=== PATIENT | female | born 1975 | race Caucasian/White ===

== ENCOUNTER → 2017-10-09 20:42 | Outpatient (CLI) | payer OTHER, SELFPAY ==
[2017-10-15 09:00] LABS: HPV APTIMA, High Risk Negative (Negative)
== END ==
PROVIDERS: Visit Provider Nurse Practitioner Women's Health
DX: Z12.4 Encounter for screening for malignant neoplasm of cervix (principal)
CPT/HCPCS: 88175; G0145

== ENCOUNTER → 2017-10-30 16:46 | Outpatient (CLI) | payer OTHER, SELFPAY ==
--- NOTE | 2017-10-30 16:48 | BI_ITS ---
MAMMOGRAPHY - BILATERAL SCREENING 3-D MIL SYNTHESIS REASON FOR EXAM: Female, 42 years old. Bilateral Screening 3-D tomosynthesis PERTINENT HISTORY: No significant family history. TECHNIQUE: 2-D mammograms and 3-D Mil synthesis of the breast (s) were performed. CAD was performed. COMPARISON: None. FINDINGS: The breast composition is composed of scattered fibroglandular density. Scattered benign calcifications are seen. No dense spiculated masses or suspicious microcalcifications are identified. No architectural distortion is identified. There is no skin thickening or retraction. There has been no significant change since the prior study. BI/SCREENING MAMM (CAD), BILAT IMPRESSION: No mammographic signs of malignancy. Routine yearly mammograms recommended. ASSESSMENT CATEGORY: BIRADS Category 1: Negative. A letter regarding these results will be sent to the patient by the facility within 30 days. FOLLOW UP RECOMMENDATION: Yearly follow up mammogram recommended. (A) Approximately 10% of breast cancers are not detected by mammography. A normal mammogram should not delay biopsy of a clinically suspicious abnormality. Electronically Signed: Vishal Maldonado MD at 7:46 EDT , Service support ,
== END ==
PROVIDERS: Family Provider Family Medicine; PCP Family Medicine; Visit Provider Nurse Practitioner Women's Health
DX: Z12.31 Encounter for screening mammogram for malignant neoplasm of breast (principal)
CPT/HCPCS: 77063; 77067

== ENCOUNTER → 2019-09-11 12:32 | Outpatient (CLI) | payer OTHER, SELFPAY ==
--- NOTE | 2019-09-11 12:36 | RAD_ITS ---
STUDY: X-RAY - RIGHT TIBIA AND FIBULA REASON FOR EXAM: Female, 43 years old. ROLLED RIGHT ANKLE 5 WEEKS AGO PLAYING BASKETBALL. PAIN SINCE THEN RIGHT LATERAL ANKLE INTO AND UP RIGHT LOWER LEG LATERALLY INTO HER RIGHT KNEE. TECHNIQUE: 2 view(s) of the tibia and fibula were obtained. COMPARISON: None. FINDINGS: Normal visualized tibia. Normal visualized fibula. The soft tissue structures are unremarkable. RAD/Tibia & Fibula 2 Views IMPRESSION: Normal x-ray examination of the tibia and fibula. Electronically Signed: Rome Mckeon, at 13:07 EDT , Service support ,
--- NOTE | 2019-09-11 12:38 | RAD_ITS ---
STUDY: X-RAY - RIGHT ANKLE REASON FOR EXAM: Female, 43 years old. ROLLED RIGHT ANKLE 5 WEEKS AGO PLAYING BASKETBALL. PAIN SINCE THEN RIGHT LATERAL ANKLE INTO AND UP RIGHT LOWER LEG LATERALLY INTO HER RIGHT KNEE. TECHNIQUE: 3 view(s) of the ankle. COMPARISON: None. FINDINGS: Normal visualized distal tibia and fibula. Normal medial and lateral malleoli. Normal tibiotalar articulation and ankle mortise. Normal visualized talus and calcaneus. The visualized subtalar, talonavicular, calcaneocuboid and tarsal articulations are normal. The soft tissue structures are unremarkable. RAD/Ankle min 3 Views IMPRESSION: Normal x-ray examination of the ankle. Electronically Signed: Rome Mckeon, at 13:07 EDT , Service support ,
== END ==
PROVIDERS: PCP Family Medicine; Referring Provider Family Medicine; Visit Provider Family Medicine
DX: M25.571 Pain in right ankle and joints of right foot (principal)
CPT/HCPCS: 73590; 73610

== ENCOUNTER 2021-05-17 16:04 | Outpatient (CLI) | payer SELFPAY ==
[2021-05-17 17:36] LABS: Absolute Lymphocyte Count 2.07 X10^3/uL (0.83-4.51); Absolute Neutrophil Count 6.7 X10^3/uL (2.0-7.7); Basophil# 0.03 X10^3/uL; Basophil% 0.3 % (0-1); Eosinophil# 0.13 X10^3/uL; Eosinophils% 1.3 % (0-5); Hematocrit 42.5 % (37-47); Hemoglobin 13.9 g/dL (12.0-15.0); Lymphocyte # 2.07 X10^3/ul (0.83-4.51); Lymphocyte % 21.3 % (19-41); Mean Corp Hgb Conc 32.7 g/dL (32-36); Mean Corpuscular Hgb 29.6 pg (27.0-32.0); Mean Corpuscular Volume 90.6 fL (81-99); Mean Platelet Vol. 11.3 fl (6.2-12.0); Monocyte# 0.71 X10^3/uL; Monocyte% 7.3 % (0-10); NRBC Flagged by Analyzer 0 % (0-5); Neutrophil # 6.73 X10^3/uL (2.7-7.7); Neutrophil % 69.4 % (47-70); Platelet Count 339 K/mm3 (150-450); RBC Distribution Width CV 13.3 % (11.6-14.6); RBC Distribution Width SD 44.4 fl (35.1-43.9); Red Blood Count 4.69 M/mm3 (4.2-5.4); White Blood Count 9.7 K/mm3 (4.4-11.0)
[2021-05-17 18:12] LABS: Anion Gap 6 (5-15); BUN 18 mg/dL (7-18); BUN/Creat Ratio 20.6 RATIO (10-20); Calcium,Total 8.8 mg/dL (8.5-10.1); Chloride 106 mmol/L (98-107); Creatinine, Serum 0.87 mg/dL (0.55-1.02); EST Glomerular Filtration Rate 75 mL/min (>60); Est Glom Filt Rate - Afr Amer 90 mL/min (>60); Glucose 90 mg/dL (74-106); Potassium 4.2 mmol/L (3.5-5.1); Sodium Level 136 mmol/L (136-145); Thyroid Stim Hormone (TSH) 2.91 uIU/mL (0.358-3.74)
[2021-05-18 10:20] LABS: Vitamin D,25 Hydroxy 22.2 ng/mL
== END 2021-05-17 23:59 | disposition home or self-care (01) ==
PROVIDERS: PCP Family Medicine; Referring Provider Family Medicine; Visit Provider Family Medicine
DX: R53.83 Other fatigue (principal)
CPT/HCPCS: 36415; 80048; 82306; 84443; 85025

== ENCOUNTER → 2021-11-17 | Outpatient (CLI) | payer OTHER, SELFPAY ==
--- NOTE | 2021-11-17 14:21 | MRI_ITS ---
STUDY: MRI RIGHT ANKLE WITHOUT CONTRAST REASON FOR EXAM: Right ankle pain, swelling, clicking, instability, high ankle sprain 1 year ago. TECHNIQUE: Standardized fat and water weighted pulse sequences were obtained in all 3 orthogonal planes. COMPARISON: Radiographs 09/11/2019. FINDINGS: Normal subcutis adipose space. There is a very small volume of fluid in the distal posterior tibialis tendon sheath (T2 axial images 17, 18). The posterior tibialis tendon is morphologically normal. Normal flexor digitorum longus tendon. Normal flexor hallucis longus tendon. Normal peroneus longus and brevis tendons. Normal tibialis anterior tendon. Normal extensor hallucis longus tendon. Normal extensor digitorum longus tendons. Normal Achilles tendon and teno-osseous insertion. Normal plantar fascia. Normal plantar calcaneal tubercles. There is mild atrophy with mild partial fat replacement of the abductor digiti minimi muscle (T1 sagittal image 6). Normal distal tibiofibular syndesmotic ligamentous complex. There is a chronic partial tear anterior talofibular ligament (T2 axial images 16, 17). Normal calcaneofibular and posterior talofibular ligaments. Normal subtalar ligaments and sinus tarsi. Normal deltoid ligamentous complexes. Normal plantar calcaneonavicular (spring) ligament. There is a small tibiotalar joint effusion (inversion recovery sagittal image 11). Normal talar dome. Normal subtalar articulations. Normal talonavicular articulation. Normal calcaneocuboid articulation. Normal navicular-cuneiform articulations. 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 Very mild posterior tibialis tenosynovitis. Small tibiotalar joint effusion. Mild atrophy of the abductor digiti minimi muscle. Electronically Signed: Eladio Vences MD at 17:10 EDT Reading Location ID and State: [facility] / MD Tel , Service support ,
== END | disposition home or self-care (01) ==
PROVIDERS: PCP Family Medicine; Visit Provider Podiatrist
DX: M25.371 Other instability, right ankle (principal)
CPT/HCPCS: 73721

== ENCOUNTER → 2021-11-18 | Outpatient (CLI) | payer OTHER, SELFPAY ==
[2021-11-18 17:47] LABS: Bacteria 0 SEEN /hpf (None Seen); Mucous, Urine 0 SEEN /hpf (<or=2+); Red Blood Cells-Urine 0 SEEN /hpf (0-5); Squamous Epithelial Cells - UA 0 SEEN /hpf (5-10)
[2021-11-18 18:04] LABS: Color, Urine Yellow (Yellow); Glucose, Dipstick Normal (Normal); Ketone-Dipstick Negative (Negative); Leukocyte Esterase-Dipstick 25 /ul (Negative); Nitrite-Dipstick Positive (Negative); Occult Blood-Urine Negative /ul (Negative); Protein-Dipstick Negative (Negative); Specific Gravity, Urine 1.005 (1.002-1.030); Urine Clarity Clear (Clear); Urine Urobilinogen 1 mg/dl (Normal)
[2021-11-18 18:09] LABS: Urine Bilirubin Dipstick 1 mg/dL (Negative)
[2021-11-18 18:10] LABS: White Blood Cells 0-5 SEEN /hpf (0-5)
== END | disposition home or self-care (01) ==
PROVIDERS: PCP Family Medicine; Referring Provider Family Medicine; Visit Provider Family Medicine
DX: N39.0 Urinary tract infection, site not specified (principal)
CPT/HCPCS: 81001; 87086

== ENCOUNTER → 2024-05-19 | Outpatient (CLI) | payer OTHER, SELFPAY | END | disposition home or self-care (01) | LOC: LABSPEC 15:02 | PROVIDERS: PCP Family Medicine; Visit Provider Physician Assistant Surgical | DX: R82.90 Unspecified abnormal findings in urine (principal) | CPT/HCPCS: 87086 ==

== ENCOUNTER → 2025-03-26 | Outpatient (CLI) | payer OTHER, SELFPAY ==
[2025-03-26 16:08] LABS: AST(SGOT) 18 U/L (<=31); Alanine Aminotransfer ALT/SGPT 18 U/L (<=34); Albumin, Serum 4.4 g/dL (3.5-5.0); Alkaline Phosphatase 73 U/L (35-104); Anion Gap 12 (5-15); BUN 14 mg/dL (4-19); BUN/Creat Ratio 15.6 RATIO (10-20); Calcium,Total 9.1 mg/dL (7.6-11.0); Carbon Dioxide 23.0 mmol/L (21.0-32.0); Chloride 102 mmol/L (98-108); Globulin 3.0 g/dL (2.2-4.2); Glucose 71 mg/dL (70-99); Potassium 4.0 mmol/L (3.3-5.1)
--- OUTSIDE RECORDS SUMMARY | 2025-03-26 17:41 | XMS RPT_ITS | CCD ---
Author Organization [facility] Care Team Providers Care Recorder Of Deeds Name Role Phone Memo Rivera Referring Unavailable Enrrique Kenny Attending Unavailable Memo Rivera Primary Care Unavailable Enrrique Kenny Attending Unavailable Memo Rivera Primary Care Unavailable Medications Current Medications Medication Drug Class(es) Dates Sig (Normalized) Sig (Original) FLUoxetine (2 sources) Serotonin Reuptake Inhibitor Start: 01-25-2013 Prozac Active January 25, 2013 12:00am Nitrofurantoin (2 sources) Nitrofuran Antibacterial Start: 01-25-2013 Macrobid Active January 25, 2013 12:00am tranexamic acid 650 mg oral tablet (2 sources) Antifibrinolytic Agent Start: 10-09-2017 Tranexamic Acid (Lysteda) 650 mg tablet Active 1300 MG PO THREE TIMES A DAY 60 October 09, 2017 12:00am Completed/Discontinued Medications Medication Drug Class(es) Dates Sig (Normalized) Sig (Original) buPROPion (2 sources) Aminoketone Start: 01-25-2013 End: 10-09-2017 Wellbutrin Discontinued January 25, 2013 12:00am October 09, 2017 1:49pm Problems Problem Classification Problem Date Documented Da te Episodic/Chronic Genitourinary symptoms and ill-defined conditions (2 sources) Unspecified abnormal findings in urine; Translations: [Dysuria] Onset: 05-17-2024 Episodic Menstrual disorders (4 sources) Menorrhagia; Translations: [Excessive and frequent menstruation with regular cycle] Chronic Mood disorders (2 sources) Depressive disorder; Translations: [Depression] Chronic Urinary tract infections (3 sources) Recurrent urinary tract infection; Translations: [Urinary tract infection, site not specified] Onset: 05-17-2024 Episodic Results Test Name Value Interpretation Reference Range Facility Urine Cultureon 05-20-2024 URC Culture exhibits no growth. Normal [facility] Comment on above: Performed By: #### M [id number] #### [facility] Laboratory [address] [place], [address] Urgent Care Visit Reporton 0 05-16-2024 Urgent Care Visit Report [facility] [address], [address] [place] [address] OFFICE VISIT Date of Service: 05/16/24 MR#: [id number] Acct: [id number] Name: ORIANA DA SILVA Rep #: [id number] : 1975 Provider: NICOLE Godfrey Age/Sex: 48/F Location: [facility] Status: Signed Intake Vital Signs 10/09/17 13:43 05/16/24 18:01 Height 5 ft 7 in BP 136/66 H Blood Pressure Location Lt brachial Position Sitting Respiration 16 Pulse 88 Pulse Source NIBP Temp 98.2 F Temp Source Oral Pulse Oximetry (%) 96 Oxygen Delivery Method room air Intake Visit Reasons: Urinary tract infection Chief Complaint: dysuria, frequency Slate 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 recent UTI, does not feel ATB completely cured UTI. denies fever, abd pain, flank pain. [facility] Surgical History History of tonsillectomy Social History current occupational status: employed current occupation: [employer] Smoking Status: Never smoker alcohol intake: current alcohol intake frequency: a few times a month substance use type: does not use seatbelt use: always do you feel safe at home: Yes additional social history: HPI HPI Chief Complaint: dysuria, frequency Details: ORIANA DA SILVA, is a 48 F who presents to the office today for complaint of dysuria and increasing urgency/frequency. Patient denies pelvic or abdominal pain. No nausea, vomiting or diarrhea. No fever, chills, sweats. No loss of bowel or bladder control. No other associated symptoms or alleviating/aggravating factors. ROS Const Constitutional: No other (6 system ROS completed with pertinent findings in the HPI otherwise normal.) Exam Const General: cooperative and healthy appearing Resp Effort Inspection: normal respiratory effort Auscultation: Bilateral: Clear to Auscultation Cardio Rate: regular rate Rhythm: regular rhythm GI Auscultation: normal bowel sounds General: No CVA tenderness Psych Appearance: grossly normal Mental Status: mental status grossly normal Coding Level of Care Code Off vis,new,level 3 Diagnoses Cystitis N30.90 Assessment and Plan Assessment and Plan (1) Cystitis: Status: Acute Plan: Bactrim as prescribed today. Encouraged to get plenty of rest, drink lots of clear liquids, and use Tylenol or Ibuprofen (unless contraindicated) for fever and comfort. Patient also educated on other symptomatic management techniques. To be seen in 7-10 days if no improvement; sooner if worsening of symptoms. Patient advised of potential red flags and when appropriate to report to the ED. Patient verbalized understanding and agreement with all the above. Orders: Orders POC Urinalysis Dip (Clinic) Today R30.0 - Dysuria Culture, Urine Today R82.90 - Unspecified abnormal findings in urine Medications: New sulfamethoxazole-trimet hoprim 800-160 mg (Bactrim DS) 1 TAB PO Q12H 20 tabs 0RF 10 days Clinical Quality Measures Falls Risk Screening/Assistive Devices Have you fallen in the past year?: No 05/16/24 180 Date Enrrique Rausch Signature: Date (if applicable) CC: Normal [facility] Basophil percentageon 2021 Basophil percentage 0-5 SEEN /hpf 0-5 [facility] Work Phone: Bilirubin Test strip Ql (U)o n 11-18-2021 Bilirubin Ql (U) 1 mg/dL Negative [facility] Work Phone: Comment on above: NCOLOR OF URINE MAY AFFECT DIPSTICK RESULTS. Ketones Test strip Ql (U)on 11-18-2021 Ketones Ql (U) Negative Negative [facility] Work Phone: Mucus LM Ql (Urine sed)on Mucus Ql (Urine sed) 0 SEEN /hpf [facility] Work Phone: Nitrite Test strip Ql (U)on 11-18-2021 Nitrite Ql (U) Positive Negative [facility] Work Phone: Protein Test strip Ql (U)on 11-18-2021 Protein Ql (U) Negative Negative [facility] Work Phone: Squamous epithelial cells de tection in urine sediment by light microscopyon 11-18-2021 Epithelial cells.squamous LM Ql (Urine sed) 0 SEEN /hpf 5-10 [facility] Work Phone: Urine blood detectionon 11-07 RBC Ql (U) Negative Negative [facility] Work Phone: RBC Ql (U) 0 SEEN /hpf 0-5 [facility] Work Phone: Urine clarityon 11-18-2021 Clarity (U) Clear Clear [facility] Work Phone: Urine color determinationon 11-18-2021 Color (U) Yellow Yellow [facility] Work Phone: Urine glucose detectionon Glucose Ql (U) Normal mg/dl Normal [facility] Work Phone: Urine leukocyte esterase det ection by dipstickon 11-18-2021 Leukocyte esterase Test strip Ql (U) 25 /ul Negative [facility] Work Phone: Urine pHon 11-18-2021 pH (U) 7.0 [pH] 5.0 - 8.0 [facility] Work Phone: Urine sediment bacteria coun t by microscopy (number/high power field)on 11-18-2021 Bacteria LM.HPF (Urine sed) [#/Area] 0 /[HPF] None Seen [facility] Work Phone: Urine specific gravity measu rementon 11-18-2021 Specific gravity (U) [Rel density] 1.005 1.002-1.030 [facility] Work Phone: Urobilinogen Auto test strip Ql (U)on 11-18-2021 Urobilinogen Ql (U) 1 mg/dl Normal [facility] Work Phone: Phone Msgon 06-23-2020 Phone Msg - From: Ursula Worthington To: Mera Munson; Sent: 05/11/2020 16:36:07 EST Subject: Reschedule Oriana indicated she needs to be rescheduled for her appt with Dr. Flynn 2/3. Please call her to reschedule and pull her off of the schedule. From: Mera Munson To: Ursula Worthington; [facility]; Sent: 05/12/2020 08:10:23 EST Subject: RE: Reschedule LV for patient to attempt to get her rescheduled. Patient's appointment for today will be canceled. If she is to call back, she can be rescheduled for August unless due to Covid. From: Karissa Flower ([facility]) To: Mera Munson; Sent: 06/23/2020 07:13:20 EDT Subject: RE: Reschedule Patient has not called back. Will file message Normal [facility] Physician Progress No ifrah 02-26-2020 [facility] Physician Progress Note Chief Complaint f/u from SIS/ EMB talk about other options. Stop taking Gianvi right after her last appt. History of Present Illness heavy bleeding Sept now just spotty but is noncompliant with pill after us appeared normal with normal SIS likely if pill is taken approp spotting will stop she is here for followup SIS was normal biopsy was normal thinking mirena need for contraception reviewed EMB was normal Physical Exam Vitals & Measurements Systolic Blood Pressure: 120 mmHg (02/26/20 10:37:00) Diastolic Blood Pressure: 80 mmHg (02/26/20 10:37:00) Height/Length Measured: 170 cm (02/26/20 10:37:00) Weight Measured: 89.2 kg (02/26/20 10:37:00) Body Mass Index Measured: 30.87 kg/m2 (02/26/20 10:37:00) Depression Screening Scores Initial Depression Screen Score: 0 (02/26/20 10:37:00) Fall Risk Assessment Is the patient ambulatory (mobile): Yes (02/26/20 10:37:00) Have you had a fall within the past: No (02/26/20 10:37:00) Have you had 2 or more falls in the past: No (02/26/20 10:37:00) Constitutional: Appears appropriate for age, non-toxic, and comfortable. No signs of apparent distress present. Speech is clear and appropriate. Awake and oriented x3. Stand comfortably erect. Patient is cooperative. VSS and reviewed Eyes: Full range of extra-ocular motion. Conjunctivae clear. Neck: Supple and no Thyromegaly Respiratory: Chest expansion is adequate bilaterally. No work of breath Cardiovascular: Rate is regular. Abdomen: Soft and Non-tender, Non distended Musculoskeletal: Walks with a normal gait. Motor strength is intact Skin: Warm and dry with no evidence of unusual rashes or suspicious lesions. Neurological: Alert and oriented x 3. Mood is normal. Lab Results Last Months Labs No qualifying data available. Assessment/Plan 1. Abnormal uterine bleeding (AUB) N93.9 Ordered: AMB IUD Precert, 02/26/2020 11:20:00 EST, mirena 2. Menorrhagia N92.0 Problem List/Past Medical History Ongoing Abnormal uterine bleeding (AUB) Anxiety Anxiety and depression Menorrhagia Historical Procedure/Surgical History Tonsillectomy. Last pap-neg 2 or 3 yrs ago Medications FLUoxetine 20 mg oral capsule Gianvi 3 mg-0.02 mg oral tablet, Not taking LORazepam 0.5 mg oral tablet PROzac, ORAL, DAILY Allergies No Known Medication Allergies Social History Alcohol - Denies Alcohol Use, 02/05/2020 Sexual Other contraceptive use: Gianvi., 02/05/2020 Tobacco Never (less than 100 in lifetime) Tobacco Use:., 02/05/2020 Family History Family history is negative . Health Maintenance Pending (in the next year) OverDue Influenza Vaccine due 11/08/19 and every 1 days Due Cervical Cancer Screening due 02/26/20 Unknown Frequency Lipid Screening due 02/26/20 Unknown Frequency MMR Vaccine Dose 1 due 02/26/20 One-time only Tetanus Vaccine due 02/26/20 and every 10 years Varicella Vaccine Dose 1 due 02/26/20 One-time only Satisfied (in the past 1 year) There are no satisfied recommendations within the defined date range Normal [facility] HYSTERSONOGRAPHY OFFICE Salty Lockhart 02-13-2020 HYSTERSONOGRAPHY OFFICE READ _GYN U/S TV Date: 02/05/20 Indication: AUB Uterus: 9.9 cm x 5.0 cm x 5.7 cm Endometrium: uniform- 6.0mm thin Position: anteverted Right Ovary: 23 mm x 17 mm x 15 mm well visualized, subcentimeter follicles present Flow normal Left Ovary: 28 mm x 16 mm x 13 mm well visualized, subcentimeter follicles present Flow normal No Free fluid in cul de sac IMPRESSION: Normal pelvic us No adnexal masses No acute process SIS= Saline infused Sonohysterogram Catheter seen inside cavity fluid distends with adequate view of uterine cavity. Endometrial lining visualized without difficulty. No pathology seen small clot present but think lining. Findings reviewed with patient. Normal [facility] Comment on above: Order Comment: Order ed on Fin# [id number] Result Comment: Tech nologist: DM Dictated By: SEVERINO FLYNN DO, FACOG Signed By: SEVERINO FLYNN DO, FACOG Transcribed: 02.13.2020 11:10 Signed Out: 02/13/20 11:10:10 SURGICAL PATH REPORTon 02-08 SURGICAL PATH REPORT [facility] Department of Pathology [address] [place] [id number] Name: ORIANA DA SILVA : 1975 [facility] [id number] Number: Gender: Female Location: [facility]. Admit 44 years Attending SEVERINO FLYNN DO, FACOG Age: Provider: Ordering SEVERINO FLYNN DO, FACOG Provider: Consulting: Surgical Pathology Report ACCESSION: COLLECTED DATE/TIME: RECEIVED DATE/TIME: PATHOLOGIST: [id number] 02/05/2020 11:00 EDT 02/06/2020 11:05 EDT CHULA HARDY, [facility] Final Diagnosis ENDOMETRIUM; BIOPSY: - SCANT ENDOMETRIUM WITH STROMAL BREAKDOWN. NOTE: There is no hyperplasia, dysplasia or malignancy seen, however, the endometrium is scanty. CELIO QUIROS PATHOLOGIST (Electronic Signature) Date Verified 02/09/2020 TS Clinical Data PRE-OP DIAGNOSIS: AUB POST-OP DIAGNOSIS: Not specified PROCEDURES: EMB SPECIMEN: Endometrial tissue Gross Description Labeled endometrial bx. Received in formalin are multiple irregular oneil feathery segments of soft tissue. The specimen is filtered and has a filtrate aggregate dimension of 2.5 x 2.0 x 0.5 cm. The specimen is entirely submitted in one cassette. MP:roman 02/06/2020 Codes CPT CODE: 31041 ____ Print Date/ 02/10/2020 09:21 EST Number: Time: [facility] Comment on above: Performed By: #### [id number] #### [facility] Services [address] [place], [place] [id number] Dental Instrument Maker: Mau Emery MD MISCELLANEOUS TEST-SOARIANon 01-10-2020 MISCELLANEOUS Canceled [facility] Comment on above: Order Comment: TEST MISCELLANEOUS TEST-SOARIAN WAS CANCELLED, 01/10/2020 12:44 Performed By: #### M ISCS #### GENERAL SENDOUT NAME OF SEND OUT TEST Canceled Normal [facility] Comment on above: Order Comment: TEST MISCELLANEOUS TEST-SOARIAN WAS CANCELLED, 01/10/2020 12:44 Performed By: #### M ISCS #### GENERAL SENDOUT CBC AND DIFFERENTIALon 01-05 Basophils (Bld) [#/Vol] 0.10 10*3/uL Normal 0.00 - 0.10 [facility] Comment on above: Performed By: #### C BCDF #### [address] [address] Basophils/100 WBC (Bld) 0.5 % Normal 0.0 - 2.0 [facility] Comment on above: Performed By: #### C BCDF #### [address] [address] Eosinophils (Bld) [#/Vol] 0.20 10*3/uL Normal 0.00 - 0.70 [facility] Comment on above: Performed By: #### C BCDF #### [address] [address] Eosinophils/100 WBC (Bld) 1.2 % Normal 0.0 - 6.0 [facility] Comment on above: Performed By: #### C BCDF #### [address] [address] Erythrocyte distribution width (RBC) [Ratio] 12.9 % Normal 11.5 - 14.5 [facility] Comment on above: Performed By: #### C BCDF #### [address] [address] Hematocrit (Bld) [Volume fraction] 40.4 % Normal 36.0 - 46.0 [facility] Comment on above: Performed By: #### C BCDF #### [address] [address] Hemoglobin (Bld) [Mass/Vol] 13.6 g/dL Normal 12.0 - 16.0 [facility] Comment on above: Performed By: #### C BCDF #### [address] [address] Lymphocytes (Bld) [#/Vol] 2.10 10*3/uL Normal 1.20 - 4.80 [facility] Comment on above: Performed By: #### C BCDF #### [address] [address] Lymphocytes/100 WBC (Bld) 16.2 % Normal 13.0 - 44.0 [facility] Comment on above: Performed By: #### C BCDF #### [address] [address] MCHC (RBC) [Mass/Vol] 33.7 g/dL Normal 32.0 - 36.0 [facility] Comment on above: Performed By: #### C BCDF #### [address] [address] MCV (RBC) [Entitic vol] 91 fL Normal 80 - 100 [facility] Comment on above: Performed By: #### C BCDF #### [address] [address] Monocytes (Bld) [#/Vol] 1.00 10*3/uL Normal 0.10 - 1.00 [facility] Comment on above: Performed By: #### C BCDF #### [address] [address] Monocytes/100 WBC (Bld) 7.8 % Normal 2.0 - 10.0 [facility] Comment on above: Performed By: #### C BCDF #### [address] [address] Neutrophils (Bld) [#/Vol] 9.60 10*3/uL High 1.20 - 7.70 [facility] Comment on above: Result Comment: Perc ent differential counts (%) should be interpreted in the context of the absolute cell counts (cells/L). Performed By: #### C BCDF #### [address] [address] Neutrophils/100 WBC (Bld) 74.3 % Normal 40.0 - 80.0 [facility] Comment on above: Performed By: #### C BCDF #### [address] [address] Platelets (Bld) [#/Vol] 306 10*3/uL Normal 150 - 450 [facility] Comment on above: Performed By: #### C BCDF #### [address] [address] RBC (Bld) [#/Vol] 4.46 x10E12/L Normal 4.00 - 5.20 [facility] Comment on above: Performed By: #### C BCDF #### [address] [address] WBC (Bld) [#/Vol] 12.9 10*3/uL High 4.4 - 11.3 [facility] Comment on above: Performed By: #### C BCDF #### [place] [id number] COMPREHENSIVE PANELon 2019 Albumin [Mass/Vol] 4.3 g/dL Normal 3.4 - 5.[address] [facility] Comment on above: Performed By: #### C MP #### [address] [address] ALP [Catalytic activity/Vol] 96 U/L Normal 33 - 110 [facility] Comment on above: Performed By: #### C MP #### [address] [address] ALT [Catalytic activity/Vol] 14 U/L Normal 7 - 45 [facility] Comment on above: Result Comment: Delmy ents treated with Sulfasalazine may generate falsely decreased results for ALT. Performed By: #### C MP #### [address] [address] Anion gap [Moles/Vol] 13 mmol/L Normal 10 - 20 [facility] Comment on above: Performed By: #### C MP #### [address] [address] AST [Catalytic activity/Vol] 13 U/L Normal 9 - 39 [facility] Comment on above: Performed By: #### C MP #### [address] [address] Bilirubin [Mass/Vol] 0.3 mg/dL Normal 0.0 - 1.2 [facility] Comment on above: Performed By: #### C MP #### [address] [address] Calcium [Mass/Vol] 9.6 mg/dL Normal 8.6 - 10.[address] [facility] Comment on above: Performed By: #### C MP #### [address] [address] Chloride [Moles/Vol] 102 mmol/L Normal 98 - 107 [facility] Comment on above: Performed By: #### C MP #### [address] [address] Creatinine [Mass/Vol] 0.96 mg/dL Normal 0.50 - 1.05 [facility] Comment on above: Performed By: #### C MP #### [place] [id number] GFR- AM. >60 Normal >60 [facility] Comment on above: Result Comment: CALC ULATIONS OF ESTIMATED GFR ARE PERFORMED USING THE MDRD STUDY EQUATION FOR THE IDMS-TRACEABLE CREATININE METHODS. CLIN CHEM 2007;53:766-72 Performed By: #### C MP #### [address] [address] GFR-NON AM. >60 Normal >60 [facility] Comment on above: Performed By: #### C MP #### [address] [address] Glucose [Mass/Vol] 105 mg/dL High 74 - [address] [facility] Comment on above: Performed By: #### C MP #### [address] [address] HCO3 (Bld) [Moles/Vol] 23 mmol/L Normal 21 - 32 [facility] Comment on above: Performed By: #### C MP #### [address] [address] Potassium [Moles/Vol] 4.0 mmol/L Normal 3.5 - 5.3 [facility] Comment on above: Performed By: #### C MP #### [address] [address] Protein [Mass/Vol] 7.9 g/dL Normal 6.4 - 8.[address] [facility] Comment on above: Performed By: #### C MP #### [address] [address] Sodium [Moles/Vol] 134 mmol/L Low 136 - [address] [facility] Comment on above: Performed By: #### C MP #### [address] [address] Urea nitrogen [Mass/Vol] 12 mg/dL Normal 6 - 23 [facility] Comment on above: Performed By: #### C MP #### [address] [address] HCG,BETA-QUANTITATIVEon 09- HCG,BETA-QUANTITATIVE <2 Normal [facility] Comment on above: Result Comment: Low- level positive HCG results can be seen in early , in uriah- or post-menopausal females due to normal pituitary HCG production, or with analytic interference. Repeat testing in 48-72 hours can aid in assessing for as results should double in this time period. FSH measurement is recommended in uriah- or post-menopausal females as concurrent elevation of FSH can support pituitary production as the source of the HCG elevation. . Total HCG measurement is performed using the [employer] Access Immunoassay which detects intact HCG and free beta HCG subunit. This test is not indicated for use as a tumor marker. HCG testing is performed using a different test methodology at [facility] than other [facility]. Direct result comparison should only be made within the same method. REF VALUES NON FEMALE <5 MALES <5 Performed By: #### H CGQU #### [address] [address] Phone Msgon 01-06-2020 Phone Msg - From: Laura Camp To: SEVERINO FLYNN DO, FACOG; Sent: 01/06/2020 12:14:35 EDT Actions: Message Dr. Kelley from [facility] called stating patient was in the ER. He wanted to speak to a physician as he is worried that she has endometrial cancer. Patient has a new patient appointment scheduled 05/12/20 in our office. From: SEVERINO FLYNN DO, FACOG To: Laura Camp; Sent: 01/06/2020 12:18:26 EDT Subject: RE: [facility] Ed called pt was seen with bleeding 3-4 days not anemic she has not been seen here hcg was neg but he reported tissue she brought in was stretchy he sent to path U/S showed 144 debris endo pt mildy obesity, has irregular periods but once a month she is scheduled in may for appointment I informed him we would see her in next 2 weeks for followup for SIS and emb we will need path report please schedule in 2 weeks for SIS and EMB Normal [facility] Provider Note - ED v2on 12-09 Provider Note - ED v2 Provider Note - ED v2: Chart Review: ED NOTES ED NOTES: ====HPI==== She presents emergency department today complaining of vaginal bleeding. She has cramping and vaginal bleeding. She passed a very large piece of tissue today which she brought in. She denies any fever chills vomiting diarrhea sore throat cough lightheadedness weakness or passing out. She denies any other complaints on review of systems. Character: Severity: Mild to moderate Exacerbated by: Nothing Improved by: Nothing Recently seen by: Denies ====Review of Systems==== 10 point system review is negative ====Physical Exam==== Constitutional/General: Alert and oriented x3, well appearing, nontoxic, and in NAD. Head: Normocephalic and atraumatic. Eyes: PERRL, EOMI, conjunctive normal, sclera nonicteric, subconjunctival layer is pink. Mouth: Oropharynx clear, handling secretions, no trismus, no asymmetry of the posterior oropharynx or uvular edema Neck: Supple, full ROM, non tender to palpation in the midline, no stridor, no crepitus, no meningeal signs. Trachea at midline. Respiratory: Lungs clear to auscultation bilaterally, no wheezes, rales, or rhonchi, not in respiratory distress. Cardiovascular: Regular rate, regular rhythm, no murmurs, gallops, or rubs, 2+ distal pulses. Chest: normal chest wall movement GI: Abdomen soft, nontender, nondistended, + BS, no organomegaly, no palpable masses, no rebound, guarding, or rigidity. Musculoskeletal: Moves all extremities x4, warm and well perfused, no clubbing, cyanosis, or edema, cap refill <3 seconds Integument: Skin warm and dry, no rashes. Lymphatic: No lymphadenopathy noted. Neurologic: GCS 15, no focal deficits, symmetric strength 5/5 in the upper and lower extremities bilaterally. Psychiatric: Normal affect. Pelvic exam was performed showing a moderate amount of blood. She had a normal-appearing cervix. ====ED Course and Medical Decision Making==== Hemoglobin was normal at 13.6. Urinalysis showed some blood. Sodium was 134. Ultrasound of the uterus showed endometrial thickening. I think she will need close follow-up. I spoke with Dr. Flynn to assure that she would have close follow-up and that the patient understood she could return if worse or any new symptoms develop. All her questions were answered. She felt comfortable with the plan. Portions of this note were dictated by speech recognition. An attempt at proof reading was made to minimize errors. Minor errors in lead mechanic may be present. Please call if questions.. HISTORY OF PRESENTING ILLNESS ORIANA is a 44 year old Female and was seen by me at 06-Jan-2020 09:56 for a chief complaint of vaginal bleeding (started period 6 days ago. on sunday started having sever cramps. yesterday evening I felt like I was having contractions and felt like I had to push. I went to the bathroom and tissue came out. it's still happening today)(1). Triage Information: Most recent Vital Sign Value Date Temp (F): 98.3 01-06-2020 10:05 Temp (C): 36.8 01-06-2020 10:05 Heart Rate (beats/min): 111 01-06-2020 10:05 Respirations (breaths/min): 18 01-06-2020 10:05 SpO2 (%): 97 01-06-2020 10:05 BP Systolic (mm Hg): 137 01-06-2020 10:05 BP Diastolic (mm Hg): 91 01-06-2020 10:05 PAST MEDICAL HISTORY ATTESTATION: I have reviewed and confirmed nurse's/medic's notes for patient's medications, allergies, medical history, and surgical history ALLERGIES/INTOLERANCES: No Known Allergies HEALTH HISTORY: No documented data. OUTPATIENT MEDICATIONS: Home Medications Review Status for Reconciliation: N/A Med Status: N/A No documented data. 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 Data Referenced From Triage - ED 06-Jan-2020 10:05 [facility] Risk Screen - Adult Emergenc yon 01-06-2020 Risk Screen - Adult Emergency Preferred Language: Preferred Language: Preferred Language for Discussing Health Care (patient/designee)Carola bethea Advanced Directives: Advance Directive/DNRno Family Violence Adult: Abuse Screen: Are you or have you been threatened or abused physically, emotionally, or sexually by anyoneno Learning Assessment (Patient): Learning Assessment (Patient): Patient is Able to be Assessed for Learningyes Factors Influencing Readiness to Learnanxiety; pain Factors that Impact Ability to Learnnone Devices/Methods Used to Communicatenone Learning Preferencesaudio Cultural Considerationsnone Developmental Considerationsnone Pentecostal Considerationsnone Learning Assessment (Other Learner): Learning Assessment (Other Learner): Other learner availableno Pressure Injury/TB/Substance: Pressure Injury: Do you have a coughno Substance Use Current or Former Historynever: Cigarette/Tobacco YES: Alcohol Alcohol Useoccasionally Admission Risk Screen: Significant IndicatorsComplete CAGE: CAGE: Is this an injured patient at a Trauma Center [place]/Iesha/Daniella meza/[place]): no Electronic Signatures: Michelle Mendez (RN) (Signed 06-Jan-2020 10:11) Authored: Preferred Language, Advanced Directives, Family Violence Adult, Learning Assessment (Patient), Learning Assessment (Other Learner), Pressure Injury/TB/Substance, Pressure Injury, CAGE Last Updated: 06-Jan-2020 10:11 by Michelle Mendez (RN) [facility] Triage - EDon 01-06-2020 Triage - ED Quick Triage: Are You maybe Have You Given In The Last 6 Weeksno Are You Currently Breastfeedingno Chart Review: ARRIVAL INFORMATION Means of Arrival: Ambulatory Mode of Arrival: private vehicle Arrival From: home Language: Spoken Language Preferred: Citizen Of The [place] CHIEF COMPLAINT ORIANA DA SILVA is a Female patient with a chief complaint of vaginal bleeding (started period 6 days ago. on sunday started having sever cramps. yesterday evening I felt like I was having contractions and felt like I had to push. I went to the bathroom and tissue came out. it's still happening today). Triage Date/Time: 06-Jan-2020 10:05 Pain Rating (0-10): 3 = Mild Vital Signs: Temperature: 98.3F ( 36.8C) Blood Pressure: 137/91 Mean: Heart Rate: 111 Respiratory Rate: 18 Pulse Oximetry: 97% on room air, no respiratory support. Height: 5 feet 7.00 inches. 170.1 CM Weight: 185.1 pounds. Calculated 84.0 kg. (stated) Calculated BMI (kg/m2): 29.031 Calculated BSA (m2) 1.99 Lovely Coma Scale: Best Eye Response: (E4) spontaneous Best Motor Response: (M6) obeys commands Best Verbal Response: (V5) oriented [place] Score: 15 Last menstrual period: 31-Dec-2019 GAMB CUTTER History: control Patient has homicidal thoughts: no STEPHIE: 3 Risk Screens Suicide Risk Screen In the Past Month: Have you wished you were or wished you could go to sleep and not wake up no In the Past Month: Have you had any actual thoughts of killing yourself no In Your Lifetime: Have you ever done anything, started to do anything, or prepared to do anything to end your life no Griffith Fall Scale Screening Has the patient fallen before (or is the patient in the ED as a result of a fall) has not had a fall Does the patient have an impaired gait does not have impaired gait Is the patient cognitively impaired not cognitively impaired Interventions: Griffith Fall Interventions: LOW INTERVENTIONS: *patient oriented to surroundings and call system, * patient/family falls education completed and documented, *patients fall status communicated during bedside handoff, *whiteboard updated, *mode of toileting discussed with patient, *bed in low position with brakes locked, *call light in reach, * non-skid footwear TRAVEL HISTORY Travel History Coronavirus Screening: no exposure or symptoms PAIN Pain Scale Used: ALBERTO Pain Rating (0-10): 3 = Mild Past Medical History: Past Medical History Reviewedyes Tonsillectomy: Past Surgical History, Active anxiety: Past Medical History, Active depression: Past Medical History, Active Electronic Signatures: Michelle Mendez (TABATHA) (Signed 06-Jan-2020 10:10) Entered: Risk Screens, Pain, Arrival, Chart Review, Scores, Past Medical History Authored: Quick Triage, Risk Screens, Pain, Arrival, Chart Review, Scores, Past Medical History Last Updated: 06-Jan-2020 10:10 by Michelle Mendez (TABATHA) Normal [facility] UA MICROSCOPICon 01-06-2020 HYALINE CAST 1+ /LPF Abnormal [facility] Comment on above: Performed By: #### U AMIC #### [place] [id number] MUCUS 3+ /LPF Normal [facility] Comment on above: Performed By: #### U AMIC #### [place] [id number] RBC 6 /HPF Abnormal 0-5 [facility] Comment on above: Performed By: #### U AMIC #### [place] [id number] WBC 1 /HPF Normal 0-5 [facility] Comment on above: Performed By: #### U AMIC #### [address] Surgical Pathology Depar tmenton 01-06-2020 [facility] Surgical Pathology Department Name ORIANA DA SILVA Pathologist: LUIS SAN MD Date of Procedure: 01/06/2020 Date Received: 01/06/2020 Date Reported 01/09/2020 Submitting Physician: SOPHIA KELLEY MD Location: Other External # FINAL DIAGNOSIS A. SPECIMEN LABELED VAGINAL TISSUE/ PRODUCTS: --NECROTIC GESTATIONAL PATTERN ENDOMETRIUM; NO TROPHOBLAST OR VILLI IDENTIFIED, SEE NOTE NOTE: Ectopic is not excluded on the basis of this specimen. Clinician's office notified. Electronically Signed Out By LUIS SAN MD/RWR By the signature on this report, the individual or group listed as making the Final Interpretation/Diagnosi s certifies that they have reviewed this case. Clinical History: vaginal products of unclear etiology Specimens Submitted As: A: VAGINAL TISSUE/ PRODUCTS Gross Description: Received fresh, wrapped in (and adherent to) tissue paper, labeled with the patient?s name and hospital number, are multiple fragments of dark red soft tissue aggregating to 6.2 x 3.8 x 1.7 cm. Chorionic villi are not identified. The specimen is entirely submitted in 9 cassettes. CJN cjn/01/06/2020 [facility] Department of Pathology [address] [place] [address] Normal [facility] Comment on above: Performed By: #### U HCS #### [facility] Surgical Pathology Department [address] [place] [address] URINALYSISon 01-06-2020 Appearance (U) HAZY Normal CLEAR [facility] Comment on above: Performed By: #### U A #### [place] [id number] Bilirubin (U) [Mass/Vol] Negative Normal NEGATIVE [facility] Comment on above: Performed By: #### U A #### [address] [address] BLOOD MODERATE(2+) Abnormal NEGATIVE [facility] Comment on above: Performed By: #### U A #### [address] [address] Color (U) Yellow Normal STRAW,YELLOW [facility] Comment on above: Performed By: #### U A #### [place] [id number] Glucose [Mass/Vol] Negative Normal NEGATIVE [facility] Comment on above: Performed By: #### U A #### [place] [id number] Ketones Ql (U) Negative Normal NEGATIVE [facility] Comment on above: Performed By: #### U A #### [place] [id number] Leukocyte esterase Test strip Ql (U) Negative Normal NEGATIVE [facility] Comment on above: Performed By: #### U A #### [place] [id number] Nitrite Ql (U) Negative Normal NEGATIVE [facility] Comment on above: Performed By: #### U A #### [place] [id number] pH (Bld) 5.0 Normal 5.0 - 8.0 [facility] Comment on above: Performed By: #### U A #### [place] [id number] Protein (U) [Mass/Vol] 30(1+) Abnormal NEGATIVE [facility] Comment on above: Performed By: #### U A #### [place] [id number] Specific gravity (U) [Rel density] 1.025 Normal 1.005 - 1.035 [facility] Comment on above: Performed By: #### U A #### [place] [id number] Urobilinogen Qn (U) <2.0 Normal 0.0 - 1.9 [facility] Comment on above: Performed By: #### U A #### [place] [id number] US PELVIS TRANSABDOMINAL WIT H TRANSVAGINALon 01-06-2020 US PELVIS TRANSABDOMINAL WITH TRANSVAGINAL Patient Name: ORIANA DA SILVA STUDY: US PELVIS TRANSABDOMINAL WITH TRANSVAGINAL; 01/06/2020 11:10 am INDICATION: discharge. COMPARISON: None. ACCESSION NUMBER(S): [id number] ORDERING CLINICIAN: SOPHIA KELLEY TECHNIQUE: Multiple multiplanar static sheets scale, color and spectral waveform sonographic images of the pelvis were obtained. Transabdominal and endovaginal ultrasound was performed. FINDINGS: UTERUS: Uterus measures 11.6 x 6.4 x 7 cm. No focal discrete lesions in the uterus. The actual endometrial thickness measures up to 5 mm, there is heterogeneity noted within the endometrial cavity measuring up to 14 mm in thickness. RIGHT ADNEXA: Right ovary measures up to 2.5 x 1.6 x 1.3 cm, shows normal echotexture and blood flow. No adnexal masses. LEFT ADNEXA: Left ovary measures up to 2.2 x 1.6 x 1.4 cm, shows normal echotexture without any focal discrete lesions. Normal blood flow noted to the left ovary. CUL DE SAC: No free fluid in the pelvis. IMPRESSION: 1. There is debris and internal echoes noted in the endometrial cavity measuring up to 14 mm, recommend correlation with the menstrual cycle, recommend clinical correlation and a follow-up ultrasound, if persists direct visualization recommended.. Electronically signed by: LEYDI GUALLPA MD [facility] Culture, urine Bacteria identified Cx Nom (U) Culture exhibits no growth. [facility] Work Phone: Encounters Encounter Date Encounter Type Care Provider Facility Start: 05-19-2024 End: 05-19-2024 ambulatory Enrrique RIVERA Facility:[facility] Start: 05-16-2024 End: 05-16-2024 ambulatory Memo Rivera Facility:[facility] Start: 11-18-2021 End: 11-18-2021 Patient encounter procedure [facility]-Laboratory, Specimen Start: 11-17-2021 End: 11-17-2021 Patient encounter procedure [facility]-MRI - [facility] Procedures Date Procedure Procedure Detail Performing Clinician Start: 11-17-2021 MRI of joint of lowe r extremity Urine culture Payers Date Payer Category Payer Self-pay [id number] 2024 Unknown [id number] Private Health Insurance [facility] [id number] Unknown [facility] [id number] Unknown [facility] [id number] Unknown [id number] Unknown [id number] Social History Date Type Detail Facility Start: 10-09-2017 Tobacco smoking stat us [facility] Unknown if ever smoked [facility] Work Phone: Start: 1975 Sex Assigned At Female W [facility] Work Phone: Evaluation note Note Date & Type Note Facility Evaluation note No assessment information availa ble [facility] Work Phone: Summary Purpose Family History No Family History Records FoundNo Family History Records FoundNo Family History Records FoundNo Family History Records Found Advance Directives No Advanced Directives Records FoundNo Advanced Directives Records FoundNo Advanced Directives Records FoundNo Advanced Directives Records Found Chief Complaint and Reason for Visit Chief Complaint RIGHT ANKLE Other in stability, right ankle UTI Additional Source Comments INFORMATION SOURCE (unrecogn ized section and content) DATE CREATED AUTHOR 01/09/2020 [facility] DATE CREATED AUTHOR AUTHOR'S ORGANIZ ATION 04/23/2020 [facility] DATE CREATED AUTHOR AUTHOR'S ORGANIZ ATION 06/24/2020 [facility] DATE CREATED AUTHOR AUTHOR'S ORGANIZ ATION 06/03/2024 [facility] Goals (unrecognized section and content) Goals may be documented in a n alternate sectionGoals may be documented in an alternate section FOR RECORDS PERTAINING TO PATIENTS WHO ARE OR HAVE BEEN ENROLLED IN A CHEMICAL DEPENDENCY/SUBSTANCEABUSE PROGRAM, SOME INFORMATION MAY BE OMITTED. This clinical summary was aggregated from multiple sources. Caution should be exercised in using it in the provision of clinical care. This summary normalizes information from multiple sources, and as a consequence, information in this document may materially change the coding, format and clinical context of patient data. In addition, data may be omitted in some cases. CLINICAL DECISIONS SHOULD BE BASED ON THE PRIMARY CLINICAL RECORDS. [facility]. provides no warranty or guarantee of the accuracy or completeness of information in this document.
== END | disposition home or self-care (01) ==
LOC: MTLAB 12:35
PROVIDERS: PCP Family Medicine; Referring Provider Family Medicine; Visit Provider Family Medicine
DX: B35.1 Tinea unguium (principal)
CPT/HCPCS: 36415; 80053